=== PATIENT | female | born 1980 | race Caucasian/White ===

== ENCOUNTER 2016-07-28 09:53 | Emergency (ER) | payer OTHER ==
[2016-07-28 10:01] VITALS: BMI 32.5
[2016-07-28 10:02] VITALS: TEMP 98.3; O2SAT 99
--- NOTE | 2016-07-28 10:23 | ED PDOC ---
HPI: Chest Pain Time Seen by Provider: 07/28/16 10:04 Chief Complaint (Nursing): Chest Pain Chief Complaint (Provider): Chest pain History Per: Patient Additional Complaint(s): 35 yo female, no PMH, presents to ED with complaints of sudden onset of chest pain that developed when she was involved in a verbal argument while at work earlier this am. Pain has improved since this am, no palpitations or SOB at this time. Pt still reports mild pain upon palpation Past Medical History Reviewed: Nursing Documentation, Vital Signs Vital Signs: Last Vital Signs Temp 98.3 F 07/28/16 10:01 Pulse 83 07/28/16 11:57 Resp 16 07/28/16 11:57 BP 123/81 07/28/16 11:57 Pulse Ox 99 07/28/16 11:57 - Medical History PMH: No Chronic Diseases - Surgical History Surgical History: No Surg Hx - Family History Family History: States: No Known Family Hx - Living Arrangements Living Arrangements: With Family - Social History Current smoker - smoking cessation education provided: No Ex-Smoker (has not smoked in the last 12 months): No Alcohol: None Drugs: Denies - Home Medications Home Medications: Ambulatory Orders Medication Instructions Recorded Cyclobenzaprine [Cyclobenzaprine 10 mg PO TID #20 tab 07/28/16 HCl] Ibuprofen [Motrin] 600 mg PO Q6 #20 tab 07/28/16 - Allergies Allergies/Adverse Reactions: Allergies Allergy/AdvReac Type Severity Reaction Status Date / Time No Known Allergies Allergy Verified 07/28/16 10:21 GIANLUCA Risk Score for UA/NSTEMI - GIANLUCA Risk Score Age > 64: NO 3 or more CAD Risk Factors: NO Known CAD (Stenosis greater than 50%): NO Aspirin use in past 7 days: NO Severe Angina: NO EKG ST changes greater than 0.5mm: NO Positive Cardiac Marker: NO GIANLUCA Score: 0 Risk %: 5% Wells Criteria for PE - Wells Criteria for Pulmonary Embolism Clinical Signs and Symptoms of DVT: No P.E is #1 Diagnosis, or Equally Likely: No Heart Rate >100: Yes Immobilization at least 3 days;Surgery previous 4 weeks: No Previous, objectively diagnosed PE or DVT: No Hemoptysis: No Malignancy w/treatment within 6 months, or palliative: No Total Score: 1.5 Review of Systems ROS Statement: Except As Marked, All Systems Reviewed And Found Negative Cardiovascular: Positive for: Chest Pain Physical Exam - Reviewed Nursing Documentation Reviewed: Yes Vital Signs Reviewed: Yes - Physical Exam Appears: Positive for: Well, Non-toxic, No Acute Distress Head Exam: Positive for: ATRAUMATIC, NORMAL INSPECTION, NORMOCEPHALIC Skin: Positive for: Normal Color, Warm, DRY Eye Exam: Positive for: EOMI, Normal appearance, PERRL ENT: Positive for: Normal ENT Inspection Neck: Positive for: Normal, Painless ROM Cardiovascular/Chest: Positive for: Regular Rate, Rhythm, Other ((+) Right sided chest wall tenderness upon palpation. npo crepitus, no edema, no ecchymosis ) Respiratory: Positive for: CNT, Normal Breath Sounds Gastrointestinal/Abdominal: Positive for: Normal Exam, Bowel Sounds, Soft Back: Positive for: Normal Inspection Extremity: Positive for: Normal ROM Neurologic/Psych: Positive for: Alert, Oriented - ECG O2 Sat by Pulse Oximetry: 99 Medical Decision Making Medical Decision Making: EKG: NSR at 100 bpm, no axis deviation, no acute ST changes, as read by OZZIE CXR: NAD, as read by OZZIE Pt medicated with Motrin and Flexeril, reports feeling improved on re-eval. Repeat pulse: 83 Stable for discharge at this time. Return to ED with any concerns. Disposition - Clinical Impression Clinical Impression: Chest wall pain - Patient ED Disposition Is Patient to be Admitted: No - Disposition Referrals: Matilde Billings MD [Primary Care Provider] - Disposition: Routine/Home Disposition Time: 13:38 Condition: GOOD Prescriptions: Cyclobenzaprine [Cyclobenzaprine HCl] 10 mg PO TID #20 tab Ibuprofen [Motrin] 600 mg PO Q6 #20 tab Instructions: Noncardiac Chest Pain (ED) - POA Present On Arrival: None
--- NOTE | 2016-07-28 11:00 | RAD ---
PROCEDURE: CHEST RADIOGRAPH, 1 VIEW HISTORY: Chest pain COMPARISON: None available. FINDINGS: LUNGS: The lungs are well inflated and clear. PLEURA: No pneumothorax or pleural fluid seen. CARDIOVASCULAR: Normal. OSSEOUS STRUCTURES: No significant abnormalities. VISUALIZED UPPER ABDOMEN: Normal. OTHER FINDINGS: None. IMPRESSION: No active pulmonary disease.
[2016-07-28 11:59] VITALS: BP 123/81; PULSE 83; RESP 16
--- NOTE | 2016-07-28 19:18 | CARD ---
APPROVED REPORT EKG Measurement Heart [id number] <Conclusion> Normal sinus rhythm Normal ECG
== END 2016-07-28 11:59 | disposition home or self-care (01) ==
LOC: H.ER 09:53
DX: R07.9 Chest pain, unspecified (principal)